=== PATIENT | female | born 1955 | race Caucasian/White ===

== ENCOUNTER → 2016-12-03 | Outpatient (CLI) | payer OTHER ==
[2005-07-09 10:15] VITALS: TEMP 97
== END ==
LOC: MC.RAD 13:16
DX: Z12.31 Encounter for screening mammogram for malignant neoplasm of breast (principal)

== ENCOUNTER → 2017-12-29 | Outpatient (CLI) | payer OTHER ==
[2005-07-09 10:15] VITALS: TEMP 97
== END ==
LOC: MC.RAD 10:54
DX: Z12.31 Encounter for screening mammogram for malignant neoplasm of breast (principal)

== ENCOUNTER → 2019-03-08 | Outpatient (CLI) | payer MEDICARE, OTHER ==
[2005-07-09 10:15] VITALS: TEMP 97
== END ==
LOC: MC.RAD 09:16
DX: Z12.31 Encounter for screening mammogram for malignant neoplasm of breast (principal)

== ENCOUNTER → 2020-03-11 | Outpatient (CLI) | payer MEDICARE, OTHER ==
[2005-07-09 10:15] VITALS: TEMP 97
== END ==
LOC: MC.RAD 07:57
DX: Z12.31 Encounter for screening mammogram for malignant neoplasm of breast (principal)

== ENCOUNTER 2020-09-23 08:37 | Day surgery (SDC) | payer MEDICARE, OTHER ==
[2020-09-23] VITALS (8 sets, daily range): BP systolic 95–159; BP diastolic 35–81; PULSE 63–93; TEMP 97.5–98.8
[~2020-09-23] VITALS: Ht 162.6 cm; Wt 79.1 kg
[2020-09-23] MEDS ORDERED: SYNTHROID 0.0.025 MG PO (10:17)
[2020-09-23] MEDS ORDERED: CYTOMEL 5MC5 MCG/TAB PO (10:17)
[2020-09-23] MEDS ORDERED: FLONASE NASAL S16 GM NS (10:18)
[2020-09-23] MEDS ORDERED: MOBIC15 MG PO (10:18)
[2020-09-23] MEDS ORDERED: XIFAXAN200 MG PO (10:19)
[2020-09-23] MEDS ORDERED: VITAMIN D250 MCG PO (10:20)
[2020-09-23] MEDS ORDERED: MAGNESIUM500 MG PO (10:20)
[2020-09-23] MEDS ORDERED: PHARMASSURE ZIN50 MG PO (10:21)
[2020-09-23] MEDS ORDERED: VITAMIN B COMPL1 SGL PO (10:21)
[2020-09-23] MEDS ORDERED: PROBIOTIC-MAJOR PO (10:22)
--- NOTE | 2020-09-23 11:30 | NUR ---
Physical Therapist here and given crutch walking instructions. Patient well with crutch walking.
--- NOTE | 2020-09-23 12:00 | NUR ---
IV fluids infusing and pre-ops given.
--- NOTE | 2020-09-23 13:00 | NUR ---
Resting and awaiting surgery.
[2020-09-23] MEDS ORDERED: NORCO 325 MG-51 TAB PO (14:24)
--- NOTE | 2020-09-23 17:10 | NUR ---
The patient arrived back to [facility] from the recovery room at this time. The patient appears drowsy but arouses easily to her name. The patient has a wound vac in place along with an dru bandage dressing to her skin graft site and a medipore dressing in place to her right groin all appear clean, dry and intact. The patient has oxygen in place at 2L per nasal cannula at this time. Post operative vital signs were started at this time.
--- NOTE | 2020-09-23 17:25 | NUR ---
The patient's oxygen was weaned down to 1L per nasal cannula. The patient's is now at her bedside. Vital signs appear stable. The patient appears to be tolerating the sprite well. Will continue to monitor the patient.
--- NOTE | 2020-09-23 17:40 | NUR ---
The patient was weaned to room air and appeared to tolerate it well. The patient agrees to try some saltine crackers. Vital signs continue to appear stable. Will continue to monitor the patient.
--- NOTE | 2020-09-23 17:55 | NUR ---
The patient agrees to ambulate to the bathroom and did so with the stand by assistance of two nurses and appeared to tolerate the activity well with her crutches. The patient voided without difficulty.
--- NOTE | 2020-09-23 18:20 | NUR ---
After returning to the bathroom the patient states that she "doesn't feel great" and was assisted back to bed and given a cool washcloth for her forehead. Vital signs were restarted at this time with a blood pressure of 95/35 and oxygen saturation of 92% on room air. The patient's is going to go fill her pain pill prescription while the patient rests. Will continue to monitor the patient.
--- NOTE | 2020-09-23 18:50 | NUR ---
The patient's is back from picking up her prescription and she verbalizes a desire to be discharged home. The patient's IV to her left forearm was removed and a pressure dressing was applied to the site. Discharge instructions were reviewed with the patient and her at this time. They both verbalized understanding and have no questions for the nurse at this time. The nurse instructed the patient to get dressed and notify the staff when she is ready to be escorted out.
--- NOTE | 2020-09-23 19:05 | NUR ---
The patient was escorted out via wheelchair to a private vehicle by LOKESH Obrien. The patient's belongings and discharge paperwork were sent with her. The patient's is present to drive her home.
== END 2020-09-23 19:05 | disposition home or self-care (01) ==
LOC: SDCO 08:37
DX: C43.71 Malignant melanoma of right lower limb, including hip (principal); L57.0 Actinic keratosis; I89.8 Other specified noninfective disorders of lymphatic vessels and lymph nodes; E78.5 Hyperlipidemia, unspecified; K21.9 Gastro-esophageal reflux disease without esophagitis; E03.9 Hypothyroidism, unspecified; E16.2 Hypoglycemia, unspecified; M19.90 Unspecified osteoarthritis, unspecified site; G89.29 Other chronic pain; M54.9 Dorsalgia, unspecified; G43.909 Migraine, unspecified, not intractable, without status migrainosus; F41.9 Anxiety disorder, unspecified; E07.9 Disorder of thyroid, unspecified; Z90.710 Acquired absence of both cervix and uterus; Z90.89 Acquired absence of other organs; Z20.822 Contact with and (suspected) exposure to COVID-19; Z79.890 Hormone replacement therapy; Z79.899 Other long term (current) drug therapy; Z87.891 Personal history of nicotine dependence; Z80.8 Family history of malignant neoplasm of other organs or systems; Z80.1 Family history of malignant neoplasm of trachea, bronchus and lung; Z80.0 Family history of malignant neoplasm of digestive organs
CPT/HCPCS: A9541; J0171; J0690; J1100; J1885; J1956; J2405; J2704; J3010; J7120; L1830

== ENCOUNTER 2021-05-29 06:51 | Day surgery (SDC) | payer MEDICARE, OTHER ==
[~2021-05-29] VITALS: Ht 162.6 cm; Wt 82.4 kg
[~2021-05-29 06:51] MED LIST: CYTOMEL 5MC5 MCG/TAB PO; FLONASE NASAL S16 GM NS; MAGNESIUM500 MG PO; MOBIC15 MG PO; NORCO 325 MG-51 TAB PO; PHARMASSURE ZIN50 MG PO; PROBIOTIC-MAJOR PO; SYNTHROID 0.0.025 MG PO; VITAMIN B COMPL1 SGL PO; VITAMIN D250 MCG PO; XIFAXAN200 MG PO
[2021-05-29 07:03] VITALS: BP 163/85; PULSE 93; TEMP 97.4
[2021-05-29] MEDS ORDERED: VITAMIN B COMPL1 SGL PO (07:11)
[2021-05-29 08:10] VITALS: BP 128/73; PULSE 86; TEMP 97.4
[2021-05-29 08:15] VITALS: PULSE 84
[2021-05-29 08:30] VITALS: BP 163/95; PULSE 78
[2021-05-29 08:34] VITALS: BP 130/90; PULSE 86
--- NOTE | 2021-05-29 08:52 | NUR ---
0810 Pt returns from endo procedure via cart and RN assist to [facility]. Pt ambulates from cart to recliner with RN assist. Monitors on and alarms set. Call light within reach. Report received from LOKESH Ayoub. Pt alert and oriented. Pt requests Sprite and saltines. Pt denies any pain or nausea. Pt's present in room. 0820 Pt taking food and drink well. No complications noted. 0846 Discharge instructions given to pt and pt's . All questions answered to their satisfaction. Handed to pt are a thank you card and discharge information. 0852 Pt transferred out of the hospital via wheelchair and this RN assist, to private vehicle driven by family.
== END 2021-05-29 08:52 | disposition home or self-care (01) ==
LOC: SDCO 06:51
DX: R19.5 Other fecal abnormalities (principal); Z87.891 Personal history of nicotine dependence
CPT/HCPCS: J2704; J7120

== ENCOUNTER → 2021-06-03 | Outpatient (CLI) | payer MEDICARE, OTHER | LOC: MC.RAD 08:31 | DX: Z12.31 Encounter for screening mammogram for malignant neoplasm of breast (principal) ==

== ENCOUNTER → 2021-10-02 | Outpatient (CLI) | payer MEDICARE, OTHER | LOC: COL.RAD 08:41 | DX: M25.551 Pain in right hip (principal) | CPT/HCPCS: J3301; Q9967 ==

== ENCOUNTER → 2023-09-14 | Outpatient (CLI) | payer MEDICARE, OTHER | LOC: MC.RAD 11:30 | DX: Z12.31 Encounter for screening mammogram for malignant neoplasm of breast (principal); N63.21 Unspecified lump in the left breast, upper outer quadrant ==